=== PATIENT | female | born 1945 | race Caucasian/White ===

== ENCOUNTER 2020-08-25 18:23 | Emergency (ER) | payer MEDICARE, OTHER ==
[~2020-08-25 18:23] MED LIST: FURO40TA5 PO; GABA-529 PO; LEVO75TA10 PO; LISI10TA7 PO; POTA10TA11 PO; RIVA15TA PO; TRAM50TA4 PO
[2020-08-25] MEDS ORDERED: OCTYL 2-CYANOACRYLATE 1 EACH TP ONE (18:58)
[2020-08-25] MEDS ORDERED: ACETAMINOPHEN 325 MG TAB ONE (18:58)
== END 2020-08-25 20:17 | disposition home or self-care (01) ==
LOC: EDH 18:23
DX: S02.2XXA Fracture of nasal bones, initial encounter for closed fracture (principal); S63.91XA Sprain of unspecified part of right wrist and hand, initial encounter; I10 Essential (primary) hypertension; M19.90 Unspecified osteoarthritis, unspecified site; Z88.5 Allergy status to narcotic agent; W18.39XA Other fall on same level, initial encounter; Y93.01 Activity, walking, marching and hiking; Y92.89 Other specified places as the place of occurrence of the external cause; Y99.8 Other external cause status
CPT/HCPCS: 12011; 70450; 70486; 72125; 73130